=== PATIENT | male | born 1985 | race African-American/Black ===

== ENCOUNTER 2016-12-28 09:02 | Emergency (ER) | payer OTHER ==
[~2016-12-28] VITALS: Ht 162.6 cm; Wt 105.9 kg
[2016-12-28 12:11] VITALS: BP 138/87
== END 2016-12-28 12:35 | disposition home or self-care (01) ==
LOC: EMS 09:03
DX: J20.9 Acute bronchitis, unspecified (principal); R42 Dizziness and giddiness; F17.200 Nicotine dependence, unspecified, uncomplicated
CPT/HCPCS: 99281; 99283

== ENCOUNTER 2017-10-14 07:21 | Emergency (ER) | payer OTHER ==
[~2017-10-14] VITALS: Ht 162.6 cm; Wt 96.8 kg
[2017-10-14 07:27] VITALS: BP 158/105
[2017-10-14] MEDS ORDERED: GuaiFENesin/D-METHORPHAN [SUGAR-FREE] 200-20MG/10 ML SYRUP UDCUP PO ONE (09:00)
== END 2017-10-14 09:08 | disposition home or self-care (01) ==
LOC: EMS 07:22
DX: J06.9 Acute upper respiratory infection, unspecified (principal); R03.0 Elevated blood-pressure reading, without diagnosis of hypertension; J02.9 Acute pharyngitis, unspecified; F17.210 Nicotine dependence, cigarettes, uncomplicated
CPT/HCPCS: 99282